=== PATIENT | male | born 1970 | race Hispanic/Latino ===

== ENCOUNTER 2021-02-23 13:43 | Emergency (ER) | payer SELFPAY ==
--- NOTE | 2021-02-23 16:03 | XRay Report ---
CHEST 2 VIEWS INDICATION: cough. COMPARISON: None FINDINGS: Support devices: None. Heart: Within normal limits. Lungs/pleura: Subtle, small airspace opacities are identified in the right lower lobe. The left lung is clear. Pleural effusion or pneumothorax. Additional findings: None. IMPRESSION: Subtle airspace opacities in the right lower lung. Early bacterial pneumonia or viral infection could be considered Signer Name: Faheem Chen Jr, MD Signed: 02/23/2021 3:59 PM Workstation Name: [id number]
[2021-02-23 17:42] LABS: Basophils % (Auto) 0.4 % (0.0-1.8); Hematocrit 48.5 % (35.5-45.6); Hemoglobin 16.7 gm/dl (11.8-15.2); Lymphocytes # (Auto) 0.9 K/mm3 (1.2-5.4); Lymphocytes % (Auto) 24.1 % (13.4-35.0); Mean Corpuscular HGB Conc 34 % (32-34); Mean Corpuscular Volume 95 fl (84-94); Monocytes # (Auto) 0.4 K/mm3 (0.0-0.8); Platelet Count 179 K/mm3 (140-440); Red Blood Count 5.12 M/mm3 (3.65-5.03); Red Cell Distribution Width 12.7 % (13.2-15.2)
[2021-02-23 18:02] LABS: Albumin 4.1 g/dL (3.9-5); Calcium 8.8 mg/dL (8.4-10.2)
[2021-02-23] MEDS ORDERED: SODIUM CHLORIDE 0.9% 1000 ML 1,000 ML IV ONE (22:27)
[2021-02-23] MEDS ORDERED: cefTRIAXone/NS 1 GM/50 ML 1 GM/50 ML BAG IV STA (22:28)
--- NOTE | 2021-02-23 22:31 | Emergency Department Report ---
<ISAAC YOUNGER - Last Filed: 02/24/21 03:41> ED General Adult HPI - General Chief complaint: Dyspnea/Respdistress Stated complaint: GENERAL SYMPTOMS Time Seen by Provider: 02/23/21 22:26 Source: patient Mode of arrival: Ambulatory Limitations: No Limitations - History of Present Illness Initial comments: 50-year-old male smoker presents emerge department complaining of a 3- day history of waxing and waning progressive worsening coryza, weakness, chills, hypersensitivity, shortness of breath, sharp pain to the chest to the back, nausea but no vomiting. -: Gradual Radiation: non-radiation Quality: aching, dull Consistency: constant Worsens with: movement Associated Symptoms: cough, diaphoresis, fever/chills, malaise, nausea/vomiting, weakness Treatments Prior to Arrival: none - Related Data Allergies Allergy/AdvReac Type Severity Reaction Status Date / Time No Known Allergies Allergy Unverified 02/23/21 14:35 ED Review of Systems Comment: All other systems reviewed and negative ED Past Medical Hx - Past Medical History Previous Medical History?: No - Surgical History Past Surgical History?: Yes Additional Surgical History: problem with nipple ED Physical Exam - General Limitations: No Limitations General appearance: alert, in no apparent distress, other (Appears sick but nontoxic) - Head Head exam: Present: atraumatic, normocephalic - Eye Eye exam: Present: normal appearance, PERRL, EOMI - ENT ENT exam: Present: mucous membranes moist - Neck Neck exam: Present: normal inspection - Respiratory Respiratory exam: Present: normal lung sounds bilaterally, rhonchi. Absent: respiratory distress - Cardiovascular Cardiovascular Exam: Present: normal rhythm, tachycardia. Absent: systolic murmur, diastolic murmur, rubs, gallop - GI/Abdominal GI/Abdominal exam: Present: soft, normal bowel sounds - Rectal Rectal exam: Present: deferred - Extremities Exam Extremities exam: Present: normal inspection, normal capillary refill - Back Exam Back exam: Present: normal inspection. Absent: CVA tenderness (R), CVA tenderness (L) - Neurological Exam Neurological exam: Present: alert, oriented X3, CN II-XII intact, normal gait - Psychiatric Psychiatric exam: Present: normal affect, normal mood - Skin Skin exam: Present: warm, dry, intact, normal color. Absent: rash, diaphoretic, erythema, pallor, abrasion, ecchymosis ED Medical Decision Making - Lab Data Result diagrams: 02/23/21 17:21 02/23/21 17:21 - Radiology Data Radiology results: report reviewed [facility] [address] [place] [address] XRay Report Signed Patient: SULY GARDUNO MR#: [id number] : 1970 Acct:[id number] Age/Sex: 50 / M ADM Date: 02/23/21 Loc: ED Attending Dr: Ordering Physician: LORAINE AGUILAR Date of Service: 02/23/21 Procedure(s): XR chest routine 2V Accession Number(s): [id number] cc: LORAINE AGUILAR Fluoro Time In Minutes: CHEST 2 VIEWS INDICATION: cough. COMPARISON: None FINDINGS: Support devices: None. Heart: Within normal limits. Lungs/pleura: Subtle, small airspace opacities are identified in the right lower lobe. The left lung is clear. Pleural effusion or pneumothorax. Additional findings: None. IMPRESSION: Subtle airspace opacities in the right lower lung. Early bacterial pneumonia or viral infection could be considered Signer Name: Faheem Chen Jr, MD Signed: 02/23/2021 3:59 PM Workstation Name: [id number] Transcribed By: TTR Dictated By: FAHEEM CHEN JR, MD Electronically Authenticated By: FAHEEM CHEN JR, MD Signed Date/Time: 02/23/21 155 DD/ 56 TD/TT: - Medical Decision Making This patient presents with dyspnea most likely secondary to pneumonia. Differential diagnosis includes asthma, bronchitis, pleuritic pulmonary issue, viral syndrome, COVID-19, hyperreactive airway disease, COPD, . Presentation not consistent with acute cardiac etiologies to include ACS , CHF, pericardial effusion/tamponade. Presentation not consistent with acute respiratory etiologies to include acute pulmonary embolism ( PERC negative), pneumothorax, asthma, COPD exacerbation, infectious etiology such as pneumonia. The presentation also not consistent with known cardiopulmonary causes to include toxic syndrome, metabolic etiology such as acidemia or electrolyte derangements, sepsis, neurologic causes. This patient presents to the emergency department with fever and lower respirato ry symptoms concerning for viral syndrome including flu and COVID-19. Patient has suspicion and is for COVID-19 infection. Differential diagnosis includes other viral causes of lower respiratory symptoms, pneumonia, asthma, bronchitis. Patient is well-appearing with acceptable vitals, lacks comor bidities admission and a reassuring physical examination and is safe to be discharged home nasal swab for COVID testing is recommended. Provide strict return precautions and instructions on self isolation/quarantine and anticipatory guidance. Case discussed with attending Dr. Bonds who will take over the case at this present time for admission and further intervention. Patient was started on IV antibiotics steroids and fluids to address his renal insufficiency, pneumonia and respiratory status. Repeat vital signs showed heart rate in a more normal range and low-grade temperature of 100.9 and when the patient does ambulate his sats decreased from 93-94 down to 90 with increased dyspnea ED Disposition Clinical Impression: Person under investigation for COVID-19, Renal insufficiency Respiratory failure Qualifiers: Chronicity: acute Respiratory failure complication: hypoxia Qualified Code(s): J96.01 - Acute respiratory failure with hypoxia Fever Qualifiers: Fever type: unspecified Qualified Code(s): R50.9 - Fever, unspecified Pneumonia Qualifiers: Pneumonia type: due to unspecified organism Laterality: bilateral Lung location: unspecified part of lung Qualified Code(s): J18.9 - Pneumonia, unspecified organism Disposition: 09 ADMITTED INPATIENT Condition: Critical <POP MACK III - Last Filed: 02/24/21 05:57> ED Review of Systems ROS: Stated complaint: GENERAL SYMPTOMS Other details as noted in HPI ED Course Vital Signs 02/23/21 02/24/21 14:37 03:24 Temperature 99.5 F 100.1 F H Pulse Rate 126 H 92 H Respiratory 22 21 Rate Blood Pressure 115/84 Blood Pressure 124/77 [Left] O2 Sat by Pulse 95 92 Oximetry - Reevaluation(s) Reevaluation #1: I reviewed the findings and management of this patient in real-time and I have personally seen and examined this patient and participated in the decision making for this patient with the midlevel. Patient is a 50-year-old male who presents emergency room for upper respiratory infections and Covid symptoms. Patient has been for 3 days. Patient symptoms are worsening. Patient states week. Patient fever chills. Patient states he is not vaccinated against COVID- 19. I examined the patient. Neck is without jugular venous distension, thyromegaly, or carotid bruits. Carotid upstrokes are brisk bilaterally. Lungs are clear to auscultation and percussion. Cardiac exam reveals the Rhythm is regular. First and second heart sounds normal. No murmurs, rubs or gallops. Patient ambulated with a pulse oximetry and the patient became hypoxic. Patient's oxygen saturation drops to 89-90%. Patient placed on O2. I discussed all results with patient. I discussed plan of care with patient. Patient agrees with plan of care and admission. Patient to be admitted to the hospitalist service. 02/24/21 04:02 Reevaluation #2: I discussed all results with patient. I discussed plan of care with patient. Patient agrees with plan of care and admission. Patient to be admitted to the hospitalist service. 02/24/21 04:17 - Consultations Consultation #1: Hospitalist consulted for admission. Hospitalist to admit patient. 02/24/21 04:05 ED Medical Decision Making - Lab Data Result diagrams: 02/23/21 17:21 02/23/21 17:21 - Differential Diagnosis Covid, PUI, fever, URI, pneumonia Critical Care Time: Yes Critical care time in (mins) excluding proc time.: 35 Critical care attestation.: If time is entered above; I have spent that time in minutes in the direct care of this critically ill patient, excluding procedure time. Critical Care Time: 35 minutes ED Disposition Is pt being admited?: Yes Does the pt Need Aspirin: No Time of Disposition: 04:06
[2021-02-24] MEDS ORDERED: dexAMETHasone 4 MG/ML VIAL IV ONE (03:32)
[2021-02-24] MEDS ORDERED: AZITHROMYCIN/NS 500 MG/250 ML 500 MG/250 ML BAG IV ONE (03:32)
[2021-02-24] MEDS ORDERED: ACETAMINOPHEN 325 MG TAB PO PRN (07:46)
[2021-02-24] MEDS ORDERED: ONDANSETRON 4 MG/2 ML INJ IV PRN (07:46)
--- NOTE | 2021-02-24 07:46 | History and Physical Report ---
History of Present Illness Date of examination: 02/24/21 Date of admission: 02/24/21 04:06 Chief complaint: Dyspnea, cough History of present illness: 50-year-old male with history of tobacco abuse presents through the emergency department with complaints of 3-day history of cough and cold-like symptoms. Patient reports fever/chills, generalized weakness and associated shortness of breath. Patient also reports nausea but no vomiting. No headache or visual dis turbances. Past History Past Medical History: No medical history Past Surgical History: No surgical history Social history: smoking Family history: no significant family history Medications and Allergies Allergies Allergy/AdvReac Type Severity Reaction Status Date / Time No Known Allergies Allergy Unverified 02/23/21 14:35 Review of Systems All systems: negative Exam - Constitutional Vitals: Temp Pulse Resp BP Pulse Ox 100.1 F H 92 H 21 124/77 92 02/24/21 03:24 02/24/21 03:24 02/24/21 03:24 02/24/21 03:24 02/24/21 03:24 General appearance: Present: no acute distress, well-nourished - EENT Eyes: Present: PERRL ENT: hearing intact, clear oral mucosa - Neck Neck: Present: supple, normal ROM - Respiratory Respiratory effort: normal Respiratory: bilateral: CTA - Cardiovascular Heart Sounds: Present: S1 & S2. Absent: rub, click - Extremities Extremities: pulses symmetrical, No edema Peripheral Pulses: within normal limits - Abdominal General gastrointestinal: Present: soft, non-tender, non-distended, normal bowel sounds Male genitourinary: Present: normal - Integumentary Integumentary: Present: clear, warm, dry - Musculoskeletal Musculoskeletal: gait normal, strength equal bilaterally - Psychiatric Psychiatric: appropriate mood/affect, intact judgment & insight - Neurologic Neurologic: CNII-XII intact, moves all extremities Results - Labs CBC & Chem 7: 02/23/21 17:21 02/23/21 17:21 Labs: Laboratory Last Values WBC 3.6 K/mm3 (4.5-11.0) L 02/23/21 17:21 RBC 5.12 M/mm3 (3.65-5.03) H 02/23/21 17:21 Hgb 16.7 gm/dl (11.8-15.2) H 02/23/21 17:21 Hct 48.5 % (35.5-45.6) H 02/23/21 17:21 MCV 95 fl (84-94) H 02/23/21 17:21 MCH 33 pg (28-32) H 02/23/21 17:21 MCHC 34 % (32-34) 02/23/21 17:21 RDW 12.7 % (13.2-15.2) L 02/23/21 17:21 Plt Count 179 K/mm3 (140-440) 02/23/21 17:21 Lymph % (Auto) 24.1 % (13.4-35.0) 02/23/21 17:21 [place] % (Auto) 11.0 % (0.0-7.3) H 02/23/21 17:21 Eos % (Auto) 0.0 % (0.0-4.3) 02/23/21 17:21 Baso % (Auto) 0.4 % (0.0-1.8) 02/23/21 17:21 Lymph # (Auto) 0.9 K/mm3 (1.2-5.4) L 02/23/21 17:21 [place] # (Auto) 0.4 K/mm3 (0.0-0.8) 02/23/21 17:21 Eos # (Auto) 0.0 K/mm3 (0.0-0.4) 02/23/21 17:21 Baso # (Auto) 0.0 K/mm3 (0.0-0.1) 02/23/21 17:21 Seg Neutrophils % 64.5 % (40.0-70.0) 02/23/21 17:21 Seg Neutrophils # 2.3 K/mm3 (1.8-7.7) 02/23/21 17:21 Sodium 136 mmol/L (137-145) L 02/23/21 17:21 Potassium 3.9 mmol/L (3.6-5.0) 02/23/21 17:21 Chloride 100.1 mmol/L (98-107) 02/23/21 17:21 Carbon Dioxide 21 mmol/L (22-30) L 02/23/21 17:21 Anion Gap 19 mmol/L 02/23/21 17:21 BUN 16 mg/dL (9-20) 02/23/21 17:21 Creatinine 1.5 mg/dL (0.8-1.3) H 02/23/21 17:21 Estimated GFR 50 ml/min 02/23/21 17:21 BUN/Creatinine Ratio 11 % 02/23/21 17:21 Glucose 120 mg/dL (75-100) H 02/23/21 17:21 Calcium 8.8 mg/dL (8.4-10.2) 02/23/21 17:21 Total Bilirubin 0.40 mg/dL (0.1-1.2) 02/23/21 17:21 AST 60 units/L (5-40) H 02/23/21 17:21 ALT 62 units/L (7-56) H 02/23/21 17:21 Alkaline Phosphatase 172 units/L (35-129) H 02/23/21 17:21 Total Protein 7.5 g/dL (6.3-8.2) 02/23/21 17:21 Albumin 4.1 g/dL (3.9-5) 02/23/21 17:21 Albumin/Globulin Ratio 1.2 % 02/23/21 17:21 Assessment and Plan Assessment and plan: Acute hypoxic respiratory failure. Sepsis. The patient meets criteria given the leukopenia, tachycardia and diagnosis of pneumonia. Right lower lobe pneumonia. Suspected COVID-19 pneumonia. 02/24/2021. Patient will be admitted to the MedSurg unit and started on antibiotics of ceftriaxone and azithromycin. We will also start Decadron empirically for COVID-19 pneumonia. Chest x-ray reveals right lower lobe pneumonia. Await Covid PCR testing. Follow-up procalcitonin and CRP. Trend inflammatory markers.
[2021-02-24] MEDS ORDERED: MORPHINE 4 MG/1 ML INJ IV PRN (07:51)
[2021-02-24] MEDS ORDERED: oxyCODONE /ACETAMINOPHEN 5-325MG TAB PO PRN (07:51)
--- NOTE | 2021-02-24 12:18 | Consultation ---
History of Present Illness - Reason for Consult Consult date: 02/24/21 COVID PUI Requesting physician: JANAK JOHNSON - History of Present Illness The patient is a 50-year-old male with no significant medical history admitted as COVID-19 PUI. Low-grade fever, labs revealed leukopenia, D-dimer 230, alkaline phosphatase 172, mild transaminitis, procalcitonin 0.05, CRP 1.0. Borderline hypoxia, saturating 92% on room air Review of Systems: reviewed in the chart, unable to obtain, minimize risk of transmission Past History Past Medical History: No medical history Past Surgical History: No surgical history Social history: smoking Family history: no significant family history Medications and Allergies Allergies Allergy/AdvReac Type Severity Reaction Status Date / Time No Known Allergies Allergy Unverified 02/23/21 14:35 Active Meds: Active Medications Acetaminophen (Acetaminophen 325 Mg Tab) 650 mg PO Q4H PRN PRN Reason: Pain MILD(1-3)/Fever >100.5/DRUMMOND Heparin Sodium (Porcine) (Heparin 5,000 Unit/1 Ml Vial) 5,000 unit SUB-Q Q8HR JAME Ceftriaxone Sodium (Rocephin/Ns 2 Gm/100 Ml) 2 gm in 100 mls @ 200 mls/hr IV Q24H JAME; Protocol Azithromycin (Zithromax/Ns) 500 mg in 250 mls @ 250 mls/hr IV Q24H JAME; Protocol Morphine Sulfate (Morphine 4 Mg/1 Ml Inj) 1 mg IV Q4H PRN PRN Reason: Pain , Severe (7-10) Ondansetron HCl (Ondansetron 4 Mg/2 Ml Inj) 4 mg IV Q8H PRN PRN Reason: Nausea And Vomiting Oxycodone/Acetaminophen (Oxycodone /Acetaminophen 5-325mg Tab) 1 tab PO Q6H PRN PRN Reason: Pain, Moderate (4-6) Sodium Chloride (Sodium Chloride 0.9% 10 Ml Flush Syringe) 10 ml IV BID JAME Last Admin: 02/24/21 11:59 Dose: Not Given Documented by: Sodium Chloride (Sodium Chloride 0.9% 10 Ml Flush Syringe) 10 ml IV PRN PRN PRN Reason: LINE FLUSH Physical Examination - Physical Exam Narrative exam: Physical Exam (reviewed in chart to minimize risk of transmission) Constitutional: deferred Head, Ears, Nose: deferred Eyes: deferred Neck: deferred Oral: deferred Cardiovascular: deferred Respiratory: deferred GI: deferred Musculoskeletal: deferred Skin: deferred Hem/Lymphatic: deferred Psych: deferred Neurological: deferred - Constitutional Vitals: Vital Signs Temp Pulse Resp BP Pulse Ox 100.1 F H 92 H 21 124/77 92 02/24/21 03:24 02/24/21 03:24 02/24/21 03:24 02/24/21 03:24 02/24/21 03:24 Temperature -Last 24 Hours Temperature 100.1 F Temperature 99.5 F Results - Labs CBC & Chem 7: 02/23/21 17:21 02/23/21 17:21 Labs: Abnormal lab results 02/23/21 02/23/21 02/24/21 Range/Units 17:21 17:21 08:01 WBC 3.6 L (4.5-11.0) K/mm3 RBC 5.12 H (3.65-5.03) M/mm3 Hgb 16.7 H (11.8-15.2) gm/dl Hct 48.5 H (35.5-45.6) % MCV 95 H (84-94) fl MCH 33 H (28-32) pg RDW 12.7 L (13.2-15.2) % [place] % (Auto) 11.0 H (0.0-7.3) % Lymph # (Auto) 0.9 L (1.2-5.4) K/mm3 Sodium 136 L (137-145) mmol/L Carbon Dioxide 21 L (22-30) mmol/L Creatinine 1.5 H (0.8-1.3) mg/dL Glucose 120 H (75-100) mg/dL POC Glucose (70-105) mg/dL AST 60 H (5-40) units/L ALT 62 H (7-56) units/L Alkaline Phosphatase 172 H (35-129) units/L Lactate Dehydrogenase 304 H (91-180) units/L 02/24/21 Range/Units 08:39 WBC (4.5-11.0) K/mm3 RBC (3.65-5.03) M/mm3 Hgb (11.8-15.2) gm/dl Hct (35.5-45.6) % MCV (84-94) fl MCH (28-32) pg RDW (13.2-15.2) % [place] % (Auto) (0.0-7.3) % Lymph # (Auto) (1.2-5.4) K/mm3 Sodium (137-145) mmol/L Carbon Dioxide (22-30) mmol/L Creatinine (0.8-1.3) mg/dL Glucose (75-100) mg/dL POC Glucose 129 H (70-105) mg/dL AST (5-40) units/L ALT (7-56) units/L Alkaline Phosphatase (35-129) units/L Lactate Dehydrogenase (91-180) units/L - Imaging and Cardiology Chest x-ray: report reviewed, image reviewed Assessment and Plan Cultures: SARS CoV2 PCR: Pending A/P: 50-year-old male with no significant medical history admitted as COVID-19 PUI: #Bilateral pneumonia: High suspicion for COVID-19 #Borderline hypoxia #Transaminitis #Leucopenia Recs: Given borderline hypoxia, hold off on remdesivir ok to continue steroids for now Procalcitonin is low, antibiotics discontinued prophylactic anticoagulation based on d-dimer per hospital protocol trend ferritin, LDH, d-dimer, CRP every 2-3 days for risk stratification and to assess disease progression ambulatory sats in AM, if clears, can discharge off steroids Phillip Ryan MD, FACP [facility] ([facility] O: [phone] F: [phone]
[2021-02-24] MEDS: HEPARIN 5,000 UNIT/1 ML VIAL SUB-Q SCH ×2 (14:10→22:40)
[2021-02-24] MEDS ORDERED: cefTRIAXone/NS 2 GM/100 ML 2 GM/100 ML BAG IV SCH (22:00)
[2021-02-25] MEDS: HEPARIN 5,000 UNIT/1 ML VIAL SUB-Q SCH ×3 (05:59→23:02)
--- NOTE | 2021-02-25 08:54 | Progress Note ---
Assessment and Plan Assessment and plan: Acute hypoxic respiratory failure. Sepsis. The patient meets criteria given the leukopenia, tachycardia and diagnosis of pneumonia. Right lower lobe pneumonia. Suspected COVID-19 pneumonia. 02/24/2021. Patient will be admitted to the MedSur unit and started on antibiotics of ceftriaxone and azithromycin. We will also start Decadron empirically for COVID-19 pneumonia. Chest x-ray reveals right lower lobe pneumonia. Await Covid PCR testing. Follow-up procalcitonin and CRP. Trend inflammatory markers. 02/25/2021. ID will hold off on remdesivir given borderline hypoxia. Patient currently on 2 L O2 via nasal cannula. Continue steroids for now. Procalcitonin level was low, thus antibiotics discontinued. Continue to trend ferritin, LDH, D-dimer and CRP. Exercise pulse oximetry today and if clear patient will discharge home off steroids. History Interval history: No new issues overnight Hospitalist Physical - Constitutional Vitals: Temp Pulse Resp BP Pulse Ox 99.2 F 79 20 100/65 94 02/25/21 00:00 02/25/21 08:00 02/25/21 08:00 02/25/21 08:00 02/25/21 08:00 General appearance: Present: no acute distress, well-nourished - EENT Eyes: Present: PERRL, EOM intact ENT: hearing intact, clear oral mucosa, dentition normal - Neck Neck: Present: supple, normal ROM - Respiratory Respiratory effort: normal Respiratory: bilateral: CTA - Cardiovascular Rhythm: regular Heart Sounds: Present: S1 & S2. Absent: gallop, rub - Extremities Extremities: no ischemia, No edema, Full ROM - Abdominal General gastrointestinal: soft, non-tender, non-distended, normal bowel sounds - Integumentary Integumentary: Present: clear, warm, dry - Neurologic Neurologic: CNII-XII intact, moves all extremities Results - Labs CBC & Chem 7: 02/23/21 17:21 02/23/21 17:21 Labs: Laboratory Last Values WBC 3.6 K/mm3 (4.5-11.0) L 02/23/21 17:21 RBC 5.12 M/mm3 (3.65-5.03) H 02/23/21 17:21 Hgb 16.7 gm/dl (11.8-15.2) H 02/23/21 17:21 Hct 48.5 % (35.5-45.6) H 02/23/21 17:21 MCV 95 fl (84-94) H 02/23/21 17:21 MCH 33 pg (28-32) H 02/23/21 17:21 MCHC 34 % (32-34) 02/23/21 17:21 RDW 12.7 % (13.2-15.2) L 02/23/21 17:21 Plt Count 179 K/mm3 (140-440) 02/23/21 17:21 Lymph % (Auto) 24.1 % (13.4-35.0) 02/23/21 17:21 [place] % (Auto) 11.0 % (0.0-7.3) H 02/23/21 17:21 Eos % (Auto) 0.0 % (0.0-4.3) 02/23/21 17:21 Baso % (Auto) 0.4 % (0.0-1.8) 02/23/21 17:21 Lymph # (Auto) 0.9 K/mm3 (1.2-5.4) L 02/23/21 17:21 [place] # (Auto) 0.4 K/mm3 (0.0-0.8) 02/23/21 17:21 Eos # (Auto) 0.0 K/mm3 (0.0-0.4) 02/23/21 17:21 Baso # (Auto) 0.0 K/mm3 (0.0-0.1) 02/23/21 17:21 Seg Neutrophils % 64.5 % (40.0-70.0) 02/23/21 17:21 Seg Neutrophils # 2.3 K/mm3 (1.8-7.7) 02/23/21 17:21 D-Dimer 230.93 ng/mlDDU (0-234) 02/24/21 08:01 Sodium 136 mmol/L (137-145) L 02/23/21 17:21 Potassium 3.9 mmol/L (3.6-5.0) 02/23/21 17:21 Chloride 100.1 mmol/L (98-107) 02/23/21 17:21 Carbon Dioxide 21 mmol/L (22-30) L 02/23/21 17:21 Anion Gap 19 mmol/L 02/23/21 17:21 BUN 16 mg/dL (9-20) 02/23/21 17:21 Creatinine 1.5 mg/dL (0.8-1.3) H 02/23/21 17:21 Estimated GFR 50 ml/min 02/23/21 17:21 BUN/Creatinine Ratio 11 % 02/23/21 17:21 Glucose 120 mg/dL (75-100) H 02/23/21 17:21 POC Glucose 129 mg/dL (70-105) H 02/24/21 08:39 Calcium 8.8 mg/dL (8.4-10.2) 02/23/21 17:21 Ferritin 2608.0 ng/mL (30.0-300.0) H 02/24/21 08:01 Total Bilirubin 0.40 mg/dL (0.1-1.2) 02/23/21 17:21 AST 60 units/L (5-40) H 02/23/21 17:21 ALT 62 units/L (7-56) H 02/23/21 17:21 Alkaline Phosphatase 172 units/L (35-129) H 02/23/21 17:21 Lactate Dehydrogenase 304 units/L (91-180) H 02/24/21 08:01 C-Reactive Protein 1.00 mg/dL (0.00-1.30) 02/24/21 08:01 Total Protein 7.5 g/dL (6.3-8.2) 02/23/21 17:21 Albumin 4.1 g/dL (3.9-5) 02/23/21 17:21 Albumin/Globulin Ratio 1.2 % 02/23/21 17:21 Procalcitonin < 0.05 ng/mL (<0.15) 02/24/21 08:01 Coronavirus (PCR) Positive (Negative) A 02/24/21 Unknown Active Medications - Current Medications Current Medications: Generic Name Dose Route Start Last Admin Trade Name Freq PRN Reason Stop Dose Admin Acetaminophen 650 mg 02/24/21 07:46 Acetaminophen 325 Mg Tab PO Q4H PRN Pain MILD(1-3)/Fever >100.5/DRUMMOND Dexamethasone 6 mg 02/25/21 10:00 Dexamethasone 2 Mg Tab PO 03/06/21 10:01 Q24HR JAME Heparin Sodium (Porcine) 5,000 unit 02/24/21 14:00 02/25/21 05:59 Heparin 5,000 Unit/1 Ml Vial SUB-Q 5,000 unit Q8HR JAME Administration Morphine Sulfate 1 mg 02/24/21 07:51 Morphine 4 Mg/1 Ml Inj IV Q4H PRN Pain , Severe (7-10) Ondansetron HCl 4 mg 02/24/21 07:46 Ondansetron 4 Mg/2 Ml Inj IV Q8H PRN Nausea And Vomiting Oxycodone/Acetaminophen 1 tab 02/24/21 07:51 Oxycodone /Acetaminophen 5-325mg Tab PO Q6H PRN Pain, Moderate (4-6) Sodium Chloride 10 ml 02/24/21 10:00 02/24/21 22:57 Sodium Chloride 0.9% 10 Ml Flush Syringe IV 10 ml BID JAME Administration Sodium Chloride 10 ml 02/24/21 07:46 Sodium Chloride 0.9% 10 Ml Flush Syringe IV PRN PRN LINE FLUSH
[2021-02-25 09:49] LABS: Basophils % (Auto) 0.6 % (0.0-1.8); Hematocrit 44.5 % (35.5-45.6); Hemoglobin 15.4 gm/dl (11.8-15.2); Lymphocytes # (Auto) 1.6 K/mm3 (1.2-5.4); Lymphocytes % (Auto) 28.6 % (13.4-35.0); Mean Corpuscular HGB Conc 35 % (32-34); Mean Corpuscular Volume 95 fl (84-94); Monocytes # (Auto) 0.4 K/mm3 (0.0-0.8); Monocytes % (Auto) 6.6 % (0.0-7.3); Platelet Count 174 K/mm3 (140-440); Red Blood Count 4.69 M/mm3 (3.65-5.03); Red Cell Distribution Width 13.1 % (13.2-15.2)
--- NOTE | 2021-02-25 09:55 | Discharge Summary ---
Providers - Providers Date of Admission: 02/24/21 07:46 Date of discharge: 02/25/21 Attending physician: JANAK JOHNSON 02/24/21 07:51 Consult to Physician [CONS] Routine Comment: Consulting Provider: KIERA HERNANDEZ Physician Instructions: Reason For Exam: pna Primary care physician: [employer]IST[employer] Hospitalization Reason for admission: COVID PUI Condition: Critical Hospital course: 50-year-old male with no significant past medical history who presented through the emergency department with complaints of 3-day history of cough and cold-like symptoms. The patient was admitted with diagnosis of Covid PUI and right lower lobe pneumonia. Chest x-ray revealed subtle infiltrates in the right lower lob e. Patient had no evidence of hypoxia with saturations at 92% on room air. The patient had Covid PCR testing that was completed on 02/24 and found to be positive. However, given no hypoxia, remdesivir was not given. Patient had IV dexamethasone started empirically but ambulatory sats did not warrant discharge with steroids. Therefore, patient is felt to have received maximal hospital benefit and will be discharged home. Patient is to undergo proper quarantine protocols. Dedicated discharge time 35 minutes. Disposition: 01 HOME / SELF CARE / HOMELESS Final Discharge Diagnosis (Prints w/discharge instructions): COVID PNA, transaminitis, right lower lobe pneumonia Core Measure Documentation - Palliative Care Palliative Care/ Comfort Measures: Not Applicable - Core Measures Any of the following diagnoses?: none Exam - Constitutional Vitals: Temp Pulse Resp BP Pulse Ox 99.2 F 86 22 104/65 96 02/25/21 00:00 02/25/21 09:00 02/25/21 09:00 02/25/21 09:00 02/25/21 09:00 General appearance: Present: no acute distress, well-nourished - EENT Eyes: Present: PERRL ENT: hearing intact, clear oral mucosa - Neck Neck: Present: supple, normal ROM - Respiratory Respiratory effort: normal Respiratory: bilateral: CTA - Cardiovascular Heart Sounds: Present: S1 & S2. Absent: rub, click - Extremities Extremities: pulses symmetrical, No edema Peripheral Pulses: within normal limits - Abdominal General gastrointestinal: Present: soft, non-tender, non-distended, normal bowel sounds Male genitourinary: Present: normal - Integumentary Integumentary: Present: clear, warm, dry - Musculoskeletal Musculoskeletal: gait normal, strength equal bilaterally - Psychiatric Psychiatric: appropriate mood/affect, intact judgment & insight - Neurologic Neurologic: CNII-XII intact, moves all extremities Plan Activity: advance as tolerated Weight Bearing Status: Weight Bear as Tolerated Diet: regular Follow up with: PRIMARY CARE, [Primary Care Provider] - 7 Days KIERA HERNANDEZ MD [Staff Physician] - 7 Days
[2021-02-25] MEDS ORDERED: DEXAMETHASONE 2 MG TAB PO SCH (10:00)
[2021-02-25] MEDS ORDERED: AZITHROMYCIN/NS 500 MG/250 ML 500 MG/250 ML BAG IV SCH (10:00)
[2021-02-25 10:13] LABS: BUN/Creatinine Ratio 16; Blood Urea Nitrogen 19 mg/dL (9-20); Calcium 8.8 mg/dL (8.4-10.2); Hemolysis Index 8
[2021-02-26 03:55] VITALS: BP 118/80
== END 2021-02-26 20:53 | disposition admitted as inpatient to this hospital (09) ==
LOC: ED 13:43 → 3A 02-24 04:06 → UNDOADMOB 02-24 04:06 → OBSVTOIN 02-24 07:46 → INTOOBSV 02-24 07:46 → ED 02-26 20:53
DX: J96.01 Acute respiratory failure with hypoxia (principal); R50.9 Fever, unspecified; N28.9 Disorder of kidney and ureter, unspecified; Z20.822 Contact with and (suspected) exposure to COVID-19
CPT/HCPCS: 36415; 71046; 80048; 80053; 82728; 82962; 83615; 84145; 85025; 85379; 86140; 94760; 99291; J0456; J0696; J1100; J1644; J7030; U0003; G0378; J8540